=== PATIENT | female | born 1985 | race African-American/Black ===

== ENCOUNTER 2018-03-12 05:11 | Day surgery (SDC) | payer OTHER ==
[2018-03-09 08:15] VITALS: BMI 38.2
[2018-03-12] MEDS ORDERED: IBUPROFEN 400 MG TABLET (FP) PO PRN (08:18)
[2018-03-12] MEDS ORDERED: ACETAMINOPHEN 325 MG TABLET (FP) PO PRN (08:18)
[2018-03-12] MEDS ORDERED: oxyCODONE HCL 5 MG TABLET PO PRN (08:18)
[2018-03-12] MEDS ORDERED: ONDANSETRON 4 MG/2 ML VIAL IVPUSH PRN ×2 (08:19→09:10)
--- NOTE | 2018-03-12 08:19 | HP ---
Admitting History and Physical - Admission History of Present Illness: 32 yo with known hx/o fibroid and cervical polyp with irregular and occasional heavy menses for hysteroscopy, polypectomy History Source: Patient Limitations to Obtaining History: No Limitations - Past Medical History Cardiovascular: No: HTN Pulmonary: No: Asthma Gastrointestinal: No: GERD Reproductive: Yes: Polycystic Ovary Syndrome ...LMP: 03/06/18 ...: No ...: 1 ...Para: 0 Heme/Onc: No: Anemia - Past Surgical History Past Surgical History: Yes: None - Smoking History Smoking history: Never smoked - Alcohol/Substance Use Hx Alcohol Use: No - Social History History of Recent Travel: No Home Medications - Allergies Allergies/Adverse Reactions: Allergies Allergy/AdvReac Type Severity Reaction Status Date / Time No Known Allergies Allergy Verified 03/12/18 06:50 - Home Medications Home Medications: Ambulatory Orders NK [No Known Home Medication] 03/09/18 Family Disease History - Family Disease History Family History: Denies Review of Systems - Review of Systems Constitutional: reports: No Symptoms Neck: reports: No Symptoms Cardiovascular: reports: No Symptoms Respiratory: reports: No Symptoms Gastrointestinal: reports: No Symptoms Genitourinary: reports: No Symptoms Neurological: reports: No Symptoms Endocrine: reports: No Symptoms Psychiatric: reports: No Symptoms Physical Examination Vital Signs: Vital Signs Temperature 99 F 03/12/18 06:53 Pulse Rate 82 03/12/18 06:53 Respiratory Rate 18 03/12/18 06:53 Blood Pressure 135/87 03/12/18 06:53 O2 Sat by Pulse Oximetry (%) 99 03/12/18 06:53 Constitutional: Yes: Well Nourished, No Distress, Calm Neck: Yes: Supple Cardiovascular: Yes: Regular Rate and Rhythm Respiratory: Yes: Regular, CTA Bilaterally Gastrointestinal: Yes: Normal Bowel Sounds, Soft Integumentary: Yes: WNL Neurological: Yes: Alert, Oriented Psychiatric: Yes: Alert, Oriented Labs: 02/15/2018 ultrasound: Transvaginal and transabdominal ultrasound were performed to reveal a 9.9 cm anteverted fibroid uterus. A single posterior pedunculated fibroid uterus. A single posterior pedunculated fibroid is seen measuring 11.2 x 12. 0 x 9.4 cm transabdominally. An endocervical polyp is seen with 3D imaging. The polyp measures 1.6 x 0.6 x 0.3 cm, a feeding vessel is seen well. The endometrium appear hyperechoic and mobile measuring 11.9 mm in AP dimension. Bilateral ovaries have a polycystic appearance. No free fluid is seen within the cul-de-sac. Imaging - Results Ultrasound: Report Reviewed Assessment/Plan 32 yo G0 with hx/o menorrhagia for hysteroscopy, polypectomy 1. Consents reviewed and signed. Reviewed risks including but not limited to infection, bleeding requiring transfusion, damage to surrounding organs such as bowel, bladder, uterine perforation. She expressed understanding and written consent obtained. 2. SCDs for DVT Prophylaxis 3. Will proceed to OR
[2018-03-12] MEDS ORDERED: LACTATED RINGERS SOLUTION 1,000 ML IV SCH ×2 (08:30→09:15)
[2018-03-12] MEDS ORDERED: PROMETHAZINE HCL 25 MG/1 ML VIAL IVPUSH PRN (09:10)
--- NOTE | 2018-03-12 09:44 | OP ---
Operative Note - Note: Operative Date: 03/12/18 Pre-Operative Diagnosis: endometrial polyp Operation: hysteroscopy, dilation and curettage, polypectomy using Symphion Findings: endocervical polyp, anteverted / anteflexed uterus Post-Operative Diagnosis: Same as Pre-op Surgeon: Viktoria Luis Anesthesiologist/GLASS BELT SANDER: Allen Greer Anesthesia: General Specimens Removed: endocervical polyp, endometrium Estimated Blood Loss (mls): 5 Operative Report Dictated: Yes
[2018-03-12 11:34] VITALS: BP 120/65; PULSE 82; TEMP 98
--- NOTE | 2018-03-12 20:34 | OP ---
DATE OF OPERATION: 03/12/2018 PREOPERATIVE DIAGNOSIS: Endocervical polyp. POSTOPERATIVE DIAGNOSIS: Endocervical polyp. FINDINGS: Endocervical polyps and anteverted, anteflexed uterus. Endometrium consistent with patient's cycle. OPERATION: Hysteroscopy, dilation and curettage, and polypectomy using Symphion. SURGEON: Viktoria Luis MD ANESTHESIOLOGIST: Allen Nash CRNA ANESTHESIA: General. SPECIMEN REMOVED: Endocervical polyp and endometrium. ESTIMATED BLOOD LOSS: 5 mL INDICATION: Patient is a 32-year-old with a history of endocervical polyp on ultrasound with irregular and occasional heavy bleeding, desiring surgical intervention. She was counseled regarding risks, benefits, alternatives, and complications of the procedures, including infection; bleeding; damage to surrounding organs such as bowel, bladder, ureters; and uterine perforation. She expressed understanding. She was brought to the operating room. When anesthesia was found to be adequate , patient was prepped and draped in normal sterile fashion, placed in dorsal lithotomy position using Jam stirrups, and a weighted speculum was placed in the posterior vagina. The anterior lip of the cervix was grasped using an Allis clamp, and the Symphion device was placed in the anterior uterine cavity. The endocervical polyp was noted. The polyp was then resected using the Symphion. Good resection of the polyp was noted. The scope was then advanced into endometrial cavity. The endometrium was consistent with the patient's cycle. A sampling of the endometrium was performed. All instruments were removed from the patient's vagina. Good hemostasis was noted. The patient tolerated the procedure well. Estimated blood loss was 5 mL. The patient was awoken from anesthesia, brought to recovery room in stable condition. Delaney [id number] MTDD
--- NOTE | 2018-03-13 18:14 | PATH ---
Surgical Pathology Report Patient Name: BELLE CARDENAS [facility]. Rec. #: [id number] /Age/Gender: 1985 (Age: 32) / F Account: [id number] Location: [facility] SURGICAL Taken: 03/12/2018 Received: 03/12/2018 Reported: 03/13/2018 Physicians: Viktoria Luis Specimen(s) Received ENDOMETRIAL CURETTINGS AND CERVICAL POLYP Clinical History Endocervical polyp, irregular bleeding Final Diagnosis ENDOMETRIAL CURETTINGS AND CERVICAL POLYP, POLYPECTOMY: FRAGMENTS OF ENDOCERVICAL POLYP. FEW FRAGMENTS OF ENDOMETRIAL POLYP. SEPARATE SECRETORY TYPE ENDOMETRIUM. Electronically Signed Shira Mckeon M.D. Gross Description Received in formalin labeled "endometrial curettings and endocervical polyp," is a 1.8 x 1.7 x 0.3 cm aggregate of perez soft tissue fragments admixed with mucus. The formalin is filtered and the specimen is entirely submitted in one cassette. /03/12/2018 [place]03/12/2018
== END 2018-03-12 11:30 | disposition home or self-care (01) ==
LOC: JASU-SURG 05:11
PROVIDERS: ATTEND Obstetrics & Gynecology
PROC: 0UJD8ZZ Inspection of Uterus and Cervix, Via Natural or Artificial Opening Endoscopic (ICD-10-PCS; 2018-03-12)
PROC: 0UBC7ZX Excision of Cervix, Via Natural or Artificial Opening, Diagnostic (ICD-10-PCS; principal; 2018-03-12 08:00)
PROC: 0UDB7ZX Extraction of Endometrium, Via Natural or Artificial Opening, Diagnostic (ICD-10-PCS; 2018-03-12 08:00)
DX: N84.1 Polyp of cervix uteri (principal)
CPT/HCPCS: 36415; 84703; 86850; 86900; 86901; 88305-TC; 94760

== ENCOUNTER 2018-09-18 09:15 | Day surgery (SDC) | payer OTHER ==
[2018-09-17 15:45] VITALS: BMI 38.0
--- NOTE | 2018-09-18 09:04 | HP ---
History & Physical Update - Physical Physical: No Change - Assessment Assessment: No Change - Plan Plan: No Change (H&P reviwed , no changes , for suction D&C)
[2018-09-18] MEDS ORDERED: oxyCODONE HCL 5 MG TABLET PO PRN (11:41)
[2018-09-18] MEDS ORDERED: IBUPROFEN 600 MG TABLET (FP) PO PRN (11:41)
[2018-09-18] MEDS ORDERED: IBUPROFEN 800 MG/8 ML IJ IVPB PRN (11:41)
[2018-09-18] MEDS ORDERED: ONDANSETRON 4 MG/2 ML VIAL IVPUSH PRN (11:41)
[2018-09-18] MEDS ORDERED: ELECTROLYTE-148 SOLN 1,000 ML IV SCH (11:45)
[2018-09-18] MEDS ORDERED: MIDAZOLAM HCL 2 MG/2 ML SINGLE DOSE VIAL ONE (11:50)
[2018-09-18] MEDS ORDERED: PROPOFOL 20 ML ONE ×2 (11:50)
--- NOTE | 2018-09-18 13:14 | OP ---
DATE OF OPERATION: 09/18/2018 PREOPERATIVE DIAGNOSES: Incomplete and fibroid uterus. POSTOPERATIVE DIAGNOSES: Incomplete and fibroid uterus. PROCEDURE: Suction dilatation and curettage. SURGEON: Oneal Horn MD ANESTHESIA: General. ESTIMATED BLOOD LOSS: 50 mL. OPERATIVE PROCEDURE: The patient was taken to the operating room and adequate general anesthesia induced. In the lithotomy position, evaluation under anesthesia revealed external genitalia to be normal. Vagina with a small amount of blood seen in the posterior wall. The cervix was slightly opened. The uterus was enlarged approximately 16 weeks, irregular sized fibroids noted. Adnexa, no masses were palpable. Then, with the weighted speculum in the vagina, anterior lip of cervix was grasped with a single-toothed tenaculum. Uterine cavity was sounded to 10 cm. Then the cervix was easily dilated with the Hegar dilator, and then suction curette was inserted, and the contents were suctioned. The patient tolerated the procedure well, left the OR in good condition. ONEAL HORN M.D. [id number]
[2018-09-18 13:34] VITALS: TEMP 98.2
[2018-09-18 14:39] VITALS: BP 102/61; PULSE 72
--- NOTE | 2018-09-19 16:57 | PATH ---
Surgical Pathology Report Patient Name: BELLE CARDENAS [facility]. Rec. #: [id number] /Age/Gender: 1985 (Age: 33) / F Account: [id number] Location: [facility] SURGICAL Taken: 09/18/2018 Received: 09/18/2018 Reported: 09/19/2018 Physicians: Oneal Horn M.D. Specimen(s) Received UTERINE CONTENTS Clinical History Incomplete Final Diagnosis UTERINE CONTENTS, DILATION AND CURETTAGE: SCANT SECRETORY-TYPE ENDOMETRIUM, RARE FRAGMENT OF LOWER UTERINE SEGMENT, AND ABUNDANT BENIGN CERVICAL TISSUE WITH SQUAMOUS METAPLASIA. NO VILLOUS TISSUE IDENTIFIED. Electronically Signed Elina Gallegos M.D. Gross Description Received in formalin labeled "uterine contents," is a 3.5 x 3.0 x 0.4 cm aggregate of perez and red soft tissue fragments. No definite villous tissue or somatic tissue is identified. The formalin is filtered and the specimen is entirely submitted in 3 cassettes. /09/18/2018 [facility]
== END 2018-09-18 14:30 | disposition home or self-care (01) ==
LOC: JASU-SURG 09:15
PROVIDERS: ATTEND Obstetrics & Gynecology
PROC: 10D17ZZ Extraction of Products of Conception, Retained, Via Natural or Artificial Opening (ICD-10-PCS; principal; 2018-09-18 11:30)
DX: O03.4 Incomplete spontaneous abortion without complication (principal); D25.0 Submucous leiomyoma of uterus
CPT/HCPCS: 86850; 86900; 86901; 88305-TC; 94760

== ENCOUNTER 2018-11-28 04:52 | Inpatient (IN) | payer OTHER ==
[2018-11-23 09:40] VITALS: BMI 38.0
--- NOTE | 2018-11-28 13:32 | HP ---
History & Physical Update - History History: No Change - Physical Physical: No Change - Assessment Assessment: No Change - Plan Plan: No Change
[2018-11-28] MEDS ORDERED: BUPIVACAINE HCL/PF 0.5% (5MG/ML) 10 ML VIAL ONE (14:23)
[2018-11-28] MEDS ORDERED: MIDAZOLAM HCL 2 MG/2 ML SINGLE DOSE VIAL ONE ×2 (14:32)
[2018-11-28] MEDS ORDERED: ceFAZolin SODIUM 1 GM VIAL IVPB ONE (14:53)
[2018-11-28] MEDS ORDERED: PROPOFOL 20 ML ONE (15:02)
[2018-11-28] MEDS ORDERED: ROCURONIUM BROMIDE 50 MG/5 ML VIAL ONE ×2 (15:03→16:25)
[2018-11-28] MEDS ORDERED: KETOROLAC TROMETHAMINE 30 MG/1 ML VIAL ONE (15:04)
[2018-11-28] MEDS ORDERED: DEXAMETHASONE SOD PHOSPHATE 4 MG/1 ML VIAL ONE (15:04)
[2018-11-28] MEDS ORDERED: SODIUM CHLORIDE 0.9% P/F 10 ML VIAL IJ ONE (15:04)
[2018-11-28] MEDS ORDERED: LIDOCAINE HCL/PF 2% SDV 5ML VIAL ONE (15:04)
[2018-11-28] MEDS ORDERED: ceFAZolin SODIUM 1 GM VIAL ONE (15:04)
[2018-11-28] MEDS ORDERED: VASOPRESSIN 20 UNITS/ML VIAL IV ONE ×2 (15:49→15:50)
[2018-11-28] MEDS ORDERED: KETAMINE HCL 200 MG/20 ML VIAL ONE (16:01)
[2018-11-28] MEDS ORDERED: NEOSTIGMINE METHYLSULFATE 0.5 MG/ML - 10 ML MDV ONE (16:47)
[2018-11-28] MEDS ORDERED: GLYCOPYRROLATE 0.2 MG/1 ML VIAL ONE (16:48)
--- NOTE | 2018-11-28 17:57 | OP ---
Operative Note - Note: Operative Date: 11/28/18 Pre-Operative Diagnosis: Uterine Fibroids Operation: abdominal myomectomy via pfannensteil incision Findings: > 15 cm fundal pedunculated fibroid Post-Operative Diagnosis: Same as Pre-op Surgeon: Viktoria Luis Chicken Hanger: Milton Reardon Anesthesiologist/HABILITATION WORKER: Jerman Whitt Anesthesia: General Estimated Blood Loss (mls): 50 Fluid Volume Replaced (mls): 2,000 Operative Report Dictated: Yes
[2018-11-28] MEDS ORDERED: ONDANSETRON 4 MG/2 ML VIAL IVPUSH PRN (18:14)
[2018-11-28] MEDS ORDERED: PROMETHAZINE HCL 25 MG/1 ML VIAL IVPUSH PRN (18:14)
[2018-11-28] MEDS: HYDROmorphone *PCA* 10MG/50ML DISP.SYRIN PCA SCH (18:20)
[2018-11-28] MEDS: LACTATED RINGERS SOLUTION 1,000 ML IV SCH (23:42)
--- NOTE | 2018-11-29 01:45 | OP ---
DATE OF OPERATION: 11/28/2018 PREOPERATIVE DIAGNOSIS: Large uterine fibroid. POSTOPERATIVE DIAGNOSIS: Large uterine fibroid. FINDINGS: Greater than 15-cm pedunculated fibroid. SURGEON: Ramin Luis MD SITE PLANNER: Milton Reardon MD ANESTHESIA: General anesthesia. ESTIMATED BLOOD LOSS: 50 mL. FLUID GIVEN: 2000 mL. INDICATIONS: Patient is a 33-year-old with history of a large pedunculated fibroid seen on ultrasound, desiring surgical management. She was counseled regarding the risks, benefits, alternatives, and complications of the procedure, including infection, bleeding, damage to surrounding organs such as bowel, bladder. She was also counseled regarding the risk of needing if gets in the future. She expressed understanding and is brought to the operating room. DESCRIPTION OF PROCEDURE: When anesthesia was found to be adequate, patient was prepped and draped in the normal sterile fashion, placed in the dorsal supine position with leftward tilt. An approximately 12-cm skin incision was made with a knife and carried down to the underlying rectus fascia. The fascia was nicked in the midline and extended laterally. The inferior portion of the fascia was extended laterally. The fascia was dissected off of the underlying rectus muscles. Using the Cardenas scissors, the rectus muscles were in the midline and the peritoneum was entered sharply. Evaluation of the uterus revealed the large pedunculated fibroid, which was then exteriorized. A red rubber catheter was placed across the lower uterine segment with care not to strangulate bowel and fallopian tubes and ovaries acted as a tourniquet to constrict the uterine vessels. The fibroid was noted to be pedunculated and this was then excised and sent to Pathology. The remaining uterine bed was then closed using 0 Vicryl in 3 layers with the top layer being closed using 2-0 Biosyn using a baseball stitch. The tourniquet was then removed. Total time was less than 30 minutes. Good hemostasis was noted from the hysterotomy site. Interceed was placed over the hysterotomy. The peritoneum was closed using 2-0 Biosyn in a running fashion. The rectus muscles were reapproximated using 2-0 Biosyn in an interrupted fashion. The fascia was closed using 0 Vicryl in a running fashion. Subcutaneous fat was then closed with 0 Vicryl in a running fashion. The skin was reapproximated using 3-0 Vicryl. The patient tolerated the procedure well. Estimated blood loss was 50 mL. Patient was brought to the recovery room in stable condition. RAMIN LUIS M.D. [id number]
[2018-11-29 07:56] LABS: HEMATOCRIT 36.9 % (32.4-45.2); HEMOGLOBIN 11.9 GM/dL (10.7-15.3); MCH 27.6 pg (25.7-33.7); MCHC 32.3 g/dl (32.0-36.0); MEAN CELL VOLUME 85.4 fl (80-96); MEAN PLT VOLUME 8.7 fl (7.5-11.1); PLATELET COUNT 332 K/MM3 (134-434); RBC 4.33 M/mm3 (3.60-5.2); RDW 14.9 % (11.6-15.6)
--- NOTE | 2018-11-29 08:57 | PN ---
Progress Note (SOAP) - Subjective History of Present Illness: Patient without acute complaints. Currently NPO, without complaints of nausea or vomiting. No ambulation yet. Denies fevers or chills. Denies chest pain, shortness of breath Pain well controlled with STAFF SCIENTIST Dilaudid (used ~ 7 cc overnight). Alonzo in place, draining yellow urine. Denies flatus. - Current Medications Current Medications: Active Medications Enoxaparin Sodium (Lovenox -) 40 mg SQ DAILY SWETHA Hydromorphone HCl (Dilaudid Digital Engineer -) 10 mg STAFF SCIENTIST STAFF SCIENTIST SWETHA; Protocol Stop: 12/05/18 18:15 Last Admin: 11/28/18 18:20 Dose: 10 mg Lactated Ringer's (Lactated Ringers Solution) 1,000 mls @ 125 mls/hr IV ASDIR SWETHA Last Admin: 11/28/18 23:42 Dose: 125 mls/hr Ondansetron HCl (Zofran Injection) 4 mg IVPUSH Q6H PRN PRN Reason: NAUSEA AND/OR VOMITING Oxycodone HCl (Roxicodone -) 10 mg PO Q4H PRN PRN Reason: PAIN LEVEL 6-10 Stop: 11/29/18 18:13 Promethazine HCl (Phenergan Injection -) 12.5 mg IVPUSH Q6H PRN PRN Reason: NAUSEA-FOR RESCUE AFTER 15 MIN - Objective Vital Signs: Vital Signs Temperature 98.6 F 11/29/18 06:37 Pulse Rate 83 11/29/18 06:37 Respiratory Rate 20 11/29/18 06:37 Blood Pressure 118/62 11/29/18 06:37 O2 Sat by Pulse Oximetry (%) 96 11/28/18 22:00 Constitutional: Yes: Well Nourished, No Distress, Calm Cardiovascular: Yes: Regular Rate and Rhythm Respiratory: Yes: Regular, CTA Bilaterally Gastrointestinal: Yes: Normal Bowel Sounds, Soft, Distention (mild soft) Genitourinary: No: Vaginal Bleeding Extremities: Yes: WNL Edema: No Wound/Incision: Yes: Steri Strips, Dressing Removed (pressure dressing removed - telfa/tegaderm in place) Neurological: Yes: Alert, Oriented ...Motor Strength: Yes: WNL Psychiatric: Yes: WNL Labs Lab Results: CBC, BMP 11/29/18 07:00 Assessment/Plan 33 yo POD # 1 s/p abdominal myomectomy via pfannensteil incision, afebrile, vital signs stable, doing well 1. Continue routine postoperative care. 2. ID - afebrile, will continue to monitor vital signs. 3. Cardiovascular No acute issues 4. Pulmonary - Encourage incentive spirometer 5. Hematology - Hemoglobin / Hematocrit stable. Will continue to monitor vital signs of anemia Plan to start lovenox for thromboprophylaxis today 6. Urinary - urine output adequate overnight Plan to DC alonzo later today and await void 7. Gastroinestinal - no signs of ileus at this time Will advance diet 8. Gynecology - will follow up pathology 9. Pain - well controlled with STAFF SCIENTIST, Plan to advance to oral meds Reviewed use of Motrin ATC, percocet PRN 10. Anticipate discharge home POD # 2, pending able to ambulate, adequate pain control and urinating without issue.
[2018-11-29] MEDS ORDERED: ACETAMINOPHEN 325 MG TABLET (FP) PO PRN (08:59)
[2018-11-29] MEDS: LACTATED RINGERS SOLUTION 1,000 ML IV SCH ×3 (09:30→21:48)
[2018-11-29] MEDS: ENOXAPARIN NA (PORCINE) 40 MG/0.4 ML DISP.SYRIN SQ SCH (10:33)
[2018-11-29] MEDS: IBUPROFEN 600 MG TABLET (FP) PO PRN ×2 (10:35→22:32)
[2018-11-29] MEDS: oxyCODONE HCL 5 MG TABLET PO PRN ×2 (13:27→18:13)
[2018-11-29] MEDS: HYDROmorphone *PCA* 10MG/50ML DISP.SYRIN PCA SCH (17:47)
[2018-11-29] MEDS: BENZOCAINE/MENTH/CETYLPYRD CL 1 EACH LOZENGE MM PRN (18:12)
--- NOTE | 2018-11-29 18:16 | PN ---
Progress Note, Physician Chief Complaint: s/p open myomectomy under general anesthesia and electric milkers installer for post op pain control History of Present Illness: s/p open myomectomy under general anesthesia post op day one. - Current Medication List Current Medications: Active Medications Acetaminophen (Tylenol -) 325 mg PO Q6H PRN PRN Reason: FEVER Benzocaine/Menthol (Cepacol Lozenge -) 1 each MM Q2H PRN PRN Reason: SORE THROAT Last Admin: 11/29/18 18:12 Dose: 1 each Enoxaparin Sodium (Lovenox -) 40 mg SQ DAILY [facility] Last Admin: 11/29/18 10:33 Dose: 40 mg Hydromorphone HCl (Dilaudid Gas Treater -) 10 mg LABORER [facility]; Protocol Stop: 12/05/18 18:15 Last Admin: 11/29/18 17:47 Dose: Not Given Lactated Ringer's (Lactated Ringers Solution) 1,000 mls @ 125 mls/hr IV ASDIR [facility] Last Admin: 11/29/18 16:43 Dose: 125 mls/hr Ibuprofen (Motrin -) 600 mg PO Q6H PRN PRN Reason: FEVER Last Admin: 11/29/18 10:35 Dose: 600 mg Ondansetron HCl (Zofran Injection) 4 mg IVPUSH Q6H PRN PRN Reason: NAUSEA AND/OR VOMITING Promethazine HCl (Phenergan Injection -) 12.5 mg IVPUSH Q6H PRN PRN Reason: NAUSEA-FOR RESCUE AFTER 15 MIN - Objective Vital Signs: Vital Signs Temperature 98.6 F 11/29/18 17:43 Pulse Rate 61 11/29/18 17:43 Respiratory Rate 20 11/29/18 17:43 Blood Pressure 94/60 11/29/18 17:43 O2 Sat by Pulse Oximetry (%) 99 11/29/18 08:53 Constitutional: Yes: Well Nourished Cardiovascular: Yes: WNL Respiratory: Yes: WNL Gastrointestinal: Yes: WNL Labs: CBC, BMP 11/29/18 07:00 Assessment/Plan pain controlled, electric milkers installer d/c'd, tolerating po, no nausea or vomiting overnight. dept of anesthesiology will sign off care at this time
[2018-11-30] MEDS: LACTATED RINGERS SOLUTION 1,000 ML IV SCH (03:00)
[2018-11-30] MEDS: IBUPROFEN 600 MG TABLET (FP) PO PRN ×2 (04:06→11:45)
[2018-11-30] MEDS ORDERED: BISACODYL 10 MG SUPP.RECT RC ONE (09:30)
[2018-11-30] MEDS ORDERED: oxyCODONE HCL 5 MG TABLET PO PRN (09:30)
--- NOTE | 2018-11-30 09:37 | PN ---
Progress Note (SOAP) - Subjective History of Present Illness: Patient without acute complaints. Tolerating clears, without complaints of nausea or vomiting. No flatus yet Ambulating in room only. Denies fevers or chills. Denies chest pain, shortness of breath On Motrin Q 6 - moderate control, + tylenol Has not received oxycodone Voiding without issue - Current Medications Current Medications: Active Medications Acetaminophen (Tylenol -) 325 mg PO Q6H PRN PRN Reason: FEVER Benzocaine/Menthol (Cepacol Lozenge -) 1 each MM Q2H PRN PRN Reason: SORE THROAT Last Admin: 11/29/18 18:12 Dose: 1 each Enoxaparin Sodium (Lovenox -) 40 mg SQ DAILY SWETHA Last Admin: 11/29/18 10:33 Dose: 40 mg Ibuprofen (Motrin -) 600 mg PO Q6H PRN PRN Reason: FEVER Last Admin: 11/30/18 04:06 Dose: 600 mg Ondansetron HCl (Zofran Injection) 4 mg IVPUSH Q6H PRN PRN Reason: NAUSEA AND/OR VOMITING Promethazine HCl (Phenergan Injection -) 12.5 mg IVPUSH Q6H PRN PRN Reason: NAUSEA-FOR RESCUE AFTER 15 MIN - Objective Vital Signs: Vital Signs Temperature 98.3 F 11/30/18 06:27 Pulse Rate 74 11/30/18 06:27 Respiratory Rate 20 11/30/18 06:27 Blood Pressure 116/64 11/30/18 06:27 O2 Sat by Pulse Oximetry (%) 99 11/29/18 21:00 Constitutional: Yes: Well Nourished, No Distress, Calm Cardiovascular: Yes: Regular Rate and Rhythm Respiratory: Yes: Regular, CTA Bilaterally, Stridor Gastrointestinal: Yes: Soft (mild distension), Tenderness (incisional ) Genitourinary: No: Vaginal Bleeding Musculoskeletal: Yes: WNL Extremities: Yes: WNL Peripheral Pulses WNL: Yes Edema: No Wound/Incision: Yes: Dressing Dry and Intact Psychiatric: Yes: Alert, Oriented Labs Lab Results: CBC, BMP 11/29/18 07:00 Assessment/Plan 33 yo POD # 2 s/p abdominal myomectomy via pfannensteil incision, afebrile, vital signs stable, doing well 1. Continue routine postoperative care. 2. ID - afebrile, will continue to monitor vital signs. 3. Cardiovascular - No acute issues 4. Pulmonary - Encourage incentive spirometer 5. Hematology - Hemoglobin / Hematocrit stable; no anemia On Lovenox for DVT Prophylaxis, encouraged ambulation. 6. Urinary - Voiding 7. Gastroinestinal - Good BS, no flatus Diet was not advanced, will advance today. Ordered suppository. Encouraged ambulation 8. Gynecology - will follow up pathology 9. Pain - Reviewed use of Motrin ATC, percocet PRN 10. Anticipate discharge later today, pending passing flatus. Patient has adequate pain control, voiding and tolerating PO intake.
[2018-11-30] MEDS: ENOXAPARIN NA (PORCINE) 40 MG/0.4 ML DISP.SYRIN SQ SCH (10:04)
[2018-11-30] MEDS: BENZOCAINE/MENTH/CETYLPYRD CL 1 EACH LOZENGE MM PRN (11:44)
--- NOTE | 2018-11-30 13:15 | DS ---
Physical Exam-CHUTE OPERATOR Vital Signs: Vital Signs Temperature 99.5 F 11/30/18 10:00 Pulse Rate 80 11/30/18 10:00 Respiratory Rate 20 11/30/18 10:00 Blood Pressure 110/64 11/30/18 10:00 O2 Sat by Pulse Oximetry (%) 99 11/30/18 09:00 Labs: CBC, BMP 11/29/18 07:00 Discharge Summary Reason For Visit: FIBROID UTERUS Fibroid Procedures: Principal: abdominal myomectomy Hospital Course: Patient admitted, underwent abdominal myomectomy for fibroids POD #1, CBC stable No signs of anemia Tolerating PO, ambulating, voiding POD #2 passing gas, stable for DC Home [facility]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 You may walk unlimited macario of and climb stairs. You may resume driving the car when you feel safe and comfortable behind the wheel. No sexual activity as instructed. Wound care If you have a bandage, leave it on, and keep dry for 48-72 hours. After that time discard the outer bandage. If they are tapes on the skin under the out of bandage leave them in place. They will peel off in the next 7 to 10 days. Do Not Peel them off. You may shower the day after surgery. If there are tapes present on the skin, you may shower over them. Diet There are no dietary restrictions. Eat healthy, high-fiber foods. Drink 6 to 8 glasses of liquid each day. This will assist in keeping your bowels are regular. Pain management Motrin 600 mg every six hours for one week Percocet has been ordered and sent to your pharmacy Call MD for any of the following: Severe pain not relieved by medication Fever of 101 or higher Excessive bleeding or drainage on dressing Inability to urinate Disposition: HOME - Home Medications Comprehensive Discharge Medication List: Ambulatory Orders Ibuprofen [Motrin -] 400 mg PO PRN PRN 09/17/18 Norethindrone-E.estradiol-Iron [Junel Fe 1.5 mg-30 Mcg Tablet] 1 each PO DAILY 11/23/18
[2018-11-30 14:17] VITALS: BP 113/69; PULSE 87; TEMP 98.2
--- NOTE | 2018-11-30 15:41 | PATH ---
Surgical Pathology Report Patient Name: BELLE CARDENAS Med. Rec. #: [id number] /Age/Gender: 1985 (Age: 33) / F Account: [id number] Location: [facility] MED/SURG Taken: 11/28/2018 Received: 11/29/2018 Reported: 11/30/2018 Physicians: Viktoria Luis Specimen(s) Received UTERINE MYOMAS Clinical History Fibroid uterus Final Diagnosis UTERINE MYOMA, ABDOMINAL MYOMECTOMY: LEIOMYOMA WITH DEGENERATIVE CHANGE (WEIGHT: 980 GRAMS). Electronically Signed Ashwini Hardy M.D. Gross Description Received in formalin, labeled "uterine myoma" is a 19.5 x 14 x 10.6 cm, 918 g, nodular light perez fibrous to firm mass, consistent with fibroid. Sectioning reveals light perez fibrous whorled cut surfaces. The central portions show areas of softening. No areas of hemorrhage or necrosis are identified. Corrections Nurse sections are submitted in five cassettes. AE/11/29/2018 ebram/11/29/2018
== END 2018-11-30 16:58 | disposition home or self-care (01) | DRG 743 ==
LOC: JSAMEDAYSX 04:52 → J8W 16:45
PROVIDERS: ADMIT Obstetrics & Gynecology; ATTEND Obstetrics & Gynecology
PROC: 0UB90ZZ Excision of Uterus, Open Approach (ICD-10-PCS; principal; 2018-11-28 15:00)
DX: D25.9 Leiomyoma of uterus, unspecified (principal)
CPT/HCPCS: 36415; 84703; 85027; 88305-TC; 94760